=== PATIENT | female | born 1965 | race Two or more races ===

== ENCOUNTER 2019-05-25 07:51 | Outpatient (CLI) | payer OTHER | END 2019-05-25 07:52 | disposition home or self-care (01) | LOC: DI 07:51 | PROVIDERS: ATTEND Family Medicine | DX: R01.1 Cardiac murmur, unspecified (principal); I10 Essential (primary) hypertension | CPT/HCPCS: 93306 ==

== ENCOUNTER 2023-03-25 12:42 | Outpatient (CLI) | payer OTHER ==
[~2023-03-25 12:42] MED LIST: LIDOCAINE 1%-EPI 1:100000 20 ML MDV ONE
[2023-03-25] MEDS ORDERED: LIDOCAINE 1%-EPI 1:100000 20 ML MDV SUBQ ONE (14:31)
--- NOTE | 2023-03-25 15:12 | Ultrasound Report ---
PROCEDURE: FNA Bx w/US Gdn 1st Les INDICATIONS: NON TOXIC GOITER TECHNIQUE: The indications, alternatives, benefits, risks, and complications of the procedure were explained to the patient. Written informed consent was obtained and placed in the chart. The area of interest wa s examined sonographically and a site was chosen for ultrasound guided percutaneous sampling. The sk in was prepared and draped in the usual fashion, and anesthetized with 1% lidocaine infiltrated from the skin down to the lesion. Multiple passes were then performed, [facility] A bandage was applied to the area of access at completion of t he study. COMPARISON: Outside thyroid ultrasound 12/01/2022. FINDINGS: Location(s) of lesion(s) sampled: Left thyroid lobe [place]: 25 gauge hypodermic needles. Number of passes: 6 Medications: 1% lidocaine for local anaesthesia. Complications: None. IMPRESSION: Successful ultrasound-guided left thyroid nodule fine needle aspiration, with cytology results mary george Reviewed by: Jhon Morocho MD on 03/25/2023 3:11 PM PDT Approved by: Jhon Morocho MD on 03/25/2023 3:11 PM PDT Station ID: [id number]
== END 2023-03-25 12:43 | disposition home or self-care (01) ==
LOC: DI 12:42
PROVIDERS: ATTEND Family Medicine
DX: E04.1 Nontoxic single thyroid nodule (principal)
CPT/HCPCS: 10005